=== PATIENT | female | born 1970 | race Caucasian/White ===

== ENCOUNTER → 2024-05-24 11:23 | Outpatient (REF) | payer OTHER, SELFPAY | LOC: WDC 11:23 | PROVIDERS: ATTENDING PHYSICIAN Physician Assistant Medical | DX: Z12.31 Encounter for screening mammogram for malignant neoplasm of breast (principal) | CPT/HCPCS: 77063; 77067 ==

== ENCOUNTER → 2024-10-29 13:00 | Outpatient (REF) | payer BC, SELFPAY | LOC: HWRAD 13:00 | PROVIDERS: ATTENDING PHYSICIAN Physician Assistant Medical | DX: R74.8 Abnormal levels of other serum enzymes (principal) | CPT/HCPCS: 76700 ==

== ENCOUNTER 2025-01-09 14:39 | Emergency (ER) | payer BC, SELFPAY ==
[2025-01-09 14:57] VITALS: BP 111/62
[2025-01-09 15:22] LABS: % Basophils 0.7 % (0-2); % Eosinophils 3.7 % (0-6); % Immature Granulocytes 0.3 % (0-0.5); % Lymphocytes 37.1 % (20.5-51.1); % Monocytes 9.2 % (1.7-9.3); Absolute Basophils 0.1 10^3/uL (0-0.2); Absolute Eosinophils 0.3 10^3/uL (0-0.7); Absolute Lymphocytes 3.4 10^3/uL (1.2-3.4); Absolute Monocytes 0.8 10^3/uL (0.1-0.6); Absolute Neutrophils 4.5 10^3/uL (1.4-6.5); Hematocrit 39.6 % (37.0-47.0); Hemoglobin 12.8 g/dL (12.0-16.0); Mean Corp Hgb Conc. 32.3 g/dL (33.0-37.0); Mean Corpuscular Hgb 28.9 pg (27.0-31.0); Mean Corpuscular Volume 89.4 fL (81.0-99.0); Mean Platelet Volume 9.6 fL (7.4-10.4); Nucleated Red Blood Cells % 0 %; Platelet Count 300 10^3/uL (130-400); Red Blood Cell Count 4.43 10^6/uL (4.20-5.40); Red Cell Dist. Width 13.7 % (11.5-14.5); White Blood Cell Count 9.2 10^3/uL (4.8-10.8)
[2025-01-09 15:36] LABS: ALT (SGPT) 20 U/L (0-35); AST (SGOT) 28 U/L (14-36); Albumin 4.6 g/dl (3.5-5.0); Alkaline Phosphatase 131 U/L (38-126); Blood Urea Nitrogen 13 mg/dl (7-17); Calcium 9.5 mg/dl (8.4-10.2); Carbon Dioxide 27 mmol/L (22-30); Chloride 104 mmol/L (98-107); Glucose 87 mg/dl (70-99); Potassium 4.2 mmol/L (3.5-5.1); Sodium 138 mmol/L (135-145); Total Bilirubin 0.8 mg/dl (0.2-1.3); Total Protein 7.3 g/dl (6.3-8.2); eGFR > 60.00
[2025-01-09 15:47] LABS: Troponin I < 0.012 ng/ml
--- NOTE | 2025-01-09 17:11 | ED.GENMED ---
ED Provider Triage
-
Patient seen by provider in Triage?: Seen in Triage
54-year-old female sent in by her family doctor for 2 weeks of lightheadedness/dizziness, she had apparent nystagmus on exam by the primary care doctor and they did not think it was vertigo. She was sent with a note saying that she has had these
symptoms with unremarkable labs and she was concerned that the patient needed imaging. Patient says she has been feeling really fatigued for the last week and a half or so. She does not have a headache.
I did not see her directly in triage but was called out to the waiting area because she was wanting to leave. I spoke with her about her lab findings that were drawn in triage being unremarkable but that her doctor had sent her here for
neuroimaging. I talked about risk of stroke. I asked her to stay and be evaluated. Patient says she could not stay any longer because it was a long wait. She is aware of the risks of leaving. I did see that she did not have any nystagmus on
direct exam,. Patient was encouraged to return for worsening symptoms
History of Present Illness
General
Chief Complaint: Dizziness
History of Present Illness
History of Present Illness:
pt eloped
Phy Exam
Physical Exam
Physical Exam:
pt eloped
Course
Orders/Labs/Results
Orders:
Orders
01/09/25 15:06
Electrocardiogram (*1) Urgent
Reason for Study: Chest Pain
EKG- Treatment ONCE
O2 Therapy [RESP] Urgent
Titrate/Wean O2 to maintain O2 sat greater than (%): 90
Special Instructions: Maintain sats >/=90%
01/09/25 15:13
Complete Blood Count/With Diff Urgent
Comprehensive Metabolic Panel Urgent
Troponin I Urgent
Abnormal Lab Results
01/09/25
15:13
MCHC 32.3 L g/dL
(33.0-37.0)
Absolute Monos (auto) 0.8 H 10^3/uL
(0.1-0.6)
Creatinine 0.5 L mg/dL
(0.6-1.0)
Alkaline Phosphatase 131 H U/L
(38-126)
01/09/25 15:13
01/09/25 15:13
Vital Signs
Initial and Last Documented VS:
Initial Vital Signs
Temp Pulse Resp BP Pulse Ox
36.7 C 66 14 111/62 99
01/09/25 14:57 01/09/25 14:57 01/09/25 14:57 01/09/25 14:57 01/09/25 14:57
Last Documented Vital Signs
Temp Pulse Resp BP Pulse Ox
36.7 C 66 14 111/62 99
01/09/25 14:57 01/09/25 14:57 01/09/25 14:57 01/09/25 14:57 01/09/25 14:57
*Critical Care Note
Total Time (30-74mins, 75-104mins- exclusive of procedures): Not Applicable
ED Attending Note
-
Portions of this chart may have been created with voice recognition software.� Occasional wrong word or��sound alike� substitutions may have occurred due to the inherent limitations of voice recognition software.
Discharge Plan
Departure
Patient Disposition: Elopement
Date of Disposition: 01/09/25
Time of Disposition: 17:13
Interventions
Interventions:
*Risk Screen - Suicide Last Done: 01/09/25 15:00
*Neglect/Abuse Screening Last Done: 01/09/25 15:00
*Nursing Disposition Last Done: 01/09/25 17:12
Discharge Date and Time
Discharge Date/Time: 01/09/25 17:18
Print Language: MONTENEGRIN
== END 2025-01-09 17:18 | disposition left against medical advice (07) ==
LOC: EMR 14:39
PROVIDERS: Emergency Medicine; EMERGENCY PHYSICIAN Student in an Organized Health Care Education/Training Program
DX: R42 Dizziness and giddiness (principal); H55.00 Unspecified nystagmus; Z53.21 Procedure and treatment not carried out due to patient leaving prior to being seen by health care provider
CPT/HCPCS: 80053; 84484; 85025; 93005

== ENCOUNTER → 2025-05-26 14:34 | Outpatient (REF) | payer BC, SELFPAY | LOC: WDC 14:34 | PROVIDERS: ATTENDING PHYSICIAN Nurse Practitioner Adult Health; FAMILY PHYSICIAN Physician Assistant Medical | DX: Z12.31 Encounter for screening mammogram for malignant neoplasm of breast (principal) | CPT/HCPCS: 77063; 77067 ==

== ENCOUNTER 2025-06-18 06:22 | Day surgery (SDC) | payer BC, SELFPAY | END 2025-06-18 10:40 | disposition home or self-care (01) | LOC: GI 06:22 | PROVIDERS: ATTENDING PHYSICIAN Internal Medicine | DX: Z12.11 Encounter for screening for malignant neoplasm of colon (principal); R13.10 Dysphagia, unspecified; K22.89 Other specified disease of esophagus; K44.9 Diaphragmatic hernia without obstruction or gangrene; K21.9 Gastro-esophageal reflux disease without esophagitis; K29.50 Unspecified chronic gastritis without bleeding; K22.70 Barrett's esophagus without dysplasia; Z98.84 Bariatric surgery status | CPT/HCPCS: 43239; G0121; 88305; 88342 ==